=== PATIENT | male | born 1940 | race Caucasian/White ===

== ENCOUNTER 2020-10-18 22:25 | Emergency (ER) | payer MEDICARE ==
[~2020-10-18] VITALS: Ht 182.8 cm; Wt 83.9 kg
[2020-10-19 00:58] LABS: BASO # 0.1 10*3/uL (0.0-0.1); BASO % 0.4 % (0.0-1.0); HEMATOCRIT 42.8 % (42.0-52.0); LYMPH # 0.4 10*3/uL (1.3-4.4); LYMPH % 3.2 % (27.0-41.0); MEAN CELL VOLUME 104.1 fl (80.0-94.0); MEAN CORPUSCULAR HGB CONC 33.6 g/dl (33.0-37.0); MEAN PLATELET VOLUME 9.8 fl (9.6-12.3); MONO # 0.8 10*3/uL (0.1-1.0); MONO % 6.6 % (3.0-9.0); NEUT % 89.5 % (47.0-73.0); PLATELET COUNT AUTOMATED 210 10*3/uL (130-400); RED BLOOD COUNT 4.11 10*6/uL (4.50-5.90); RED CELL DISTRI WIDTH 11.9 % (0-14.5); WHITE BLOOD COUNT 12.3 10*3/uL (4.8-10.8)
[2020-10-19 01:14] LABS: ALBUMIN 3.4 gm/dl (3.1-4.5); ALKALINE PHOSPHATASE 439 U/L (45-117); BUN 11 mg/dl (7-24); CHLORIDE 100 mmol/L (98-107); CREATININE 1.01 mg/dL (0.70-1.30); LIPASE 80 U/L (73-393); POTASSIUM 4.5 mmol/L (3.5-5.1); SGOT/AST 49 IU/L (3-35); SGPT/ALT 51 U/L (12-78); SODIUM 133 mmol/L (136-145); TOTAL PROTEIN 7.5 gm/dL (6.4-8.2)
[2020-10-19] MEDS ORDERED: MIRALAX POWDER17 G1 PO (02:35)
[2020-10-19] MEDS ORDERED: ZOFRAN4 MG PO (02:35)
== END 2020-10-19 03:00 | disposition home or self-care (01) ==
LOC: ED 22:25
PROVIDERS: Internal Medicine
DX: R11.2 Nausea with vomiting, unspecified (principal); R74.01 Elevation of levels of liver transaminase levels; F10.20 Alcohol dependence, uncomplicated; Y90.9 Presence of alcohol in blood, level not specified